=== PATIENT | male | born 1975 | race Caucasian/White ===

== ENCOUNTER 2022-08-10 10:15 | Emergency (ER) | payer OTHER ==
[~2022-08-10] VITALS: Ht 172.7 cm; Wt 86.2 kg
[2022-08-10] MEDS ORDERED: CEFDINIR300 MG PO (11:19)
[2022-08-10] MEDS ORDERED: LEVOFLOXACIN500 MG PO (11:32)
== END 2022-08-10 11:40 | disposition home or self-care (01) ==
LOC: ED 10:15
DX: T15.01XA Foreign body in cornea, right eye, initial encounter (principal); Z88.0 Allergy status to penicillin; Z88.1 Allergy status to other antibiotic agents; Z88.2 Allergy status to sulfonamides; Z91.040 Latex allergy status; W22.8XXA Striking against or struck by other objects, initial encounter; Y93.89 Activity, other specified; Y92.89 Other specified places as the place of occurrence of the external cause; Y99.8 Other external cause status